=== PATIENT | female | born 1955 ===

== ENCOUNTER 2025-05-16 05:51 | Day surgery (SDC) | payer OTHER, SELFPAY ==
[2025-04-27 10:58] LABS: Hematocrit 43.5 % (37.0-47.0); Hemoglobin 14.4 g/dL (12.0-16.0); Mean Corp Hgb Conc. 33.1 g/dL (33.0-37.0); Mean Corpuscular Volume 88.4 fL (81.0-99.0); Platelet Count 313 10^3/uL (130-400); Red Cell Dist. Width 12.4 % (11.5-14.5)
[2025-04-27 12:37] LABS: Glycohemoglobin (HgbA1c) 5.4 % (4.0-5.9)
[2025-04-27 13:50] VITALS: BMI 35.8
[2025-04-27 14:56] VITALS: BMI 35.8
[2025-04-27 16:47] LABS: ALT (SGPT) 31 U/L (0-35); AST (SGOT) 24 U/L (14-36); Albumin 4.3 g/dl (3.5-5.0); Alkaline Phosphatase 87 U/L (38-126); Blood Urea Nitrogen 16 mg/dl (7-17); Calcium 9.8 mg/dl (8.4-10.2); Carbon Dioxide 30 mmol/L (22-30); Chloride 103 mmol/L (98-107); Estimated Creatinine Clearance 85 ml/min; Glucose 103 mg/dl (70-99); Potassium 4.9 mmol/L (3.5-5.1); Sodium 137 mmol/L (135-145); Total Protein 7.1 g/dl (6.3-8.2); eGFR > 60.00
--- NOTE | 2025-05-12 15:56 | CM ---
Patient has been referred to [facility] for SDS protocol. CM will follow up with [facility] to confirm acceptance.
--- NOTE | 2025-05-12 15:57 | CM ---
Demographics: confirmed
Living situation: with family.
Support Person Post Operatively:
History of
VN: no
SNF: no
Outpatient: confirmed
Has patient purchased required equipment: yes
PCP: confirmed
Pharmacy: [facility]
Post Operative Discharge Plan: [facility], [facility]
[2025-05-16] VITALS (12 sets, daily range): BP systolic 90–147; BP diastolic 48–86; PULSE 81; O2SAT 96
[2025-05-16] MEDS: CELEBREX 200 MG PO (06:23)
[2025-05-16] MEDS: TYLENOL 650 MG PO (06:23)
[2025-05-16] MEDS: NORMOSOL-R/PLASMALYTE-A 1000 IV (06:37)
[2025-05-16] MEDS: ZOFRAN 4 MG IV (08:51)
[2025-05-16] MEDS: ROXICODONE 5 MG PO (11:37)
[2025-05-16] MEDS: CYKLOKAPRON 650 MG PO (11:57)
[2025-05-16] MEDS: ANCEF 5 IV (12:06)
--- NOTE | 2025-05-16 12:27 | PTCARENOTE ---
Reached out to Shannon Maria about patients BP 90/58 after getting dressed and moving around/ Patient began to break out into a cold sweat and get a little light headed and dizzy. Shannon Maria to order midodrine and encourage oral hydration.
--- NOTE | 2025-05-16 15:38 | CM ---
[facility] following patient and have been notified that patient has been cleared and will be out at patient's home today to meet with patient.
Plan; Home with [facility].
== END 2025-05-16 14:30 | disposition home or self-care (01) ==
LOC: SDS 05:51
PROVIDERS: ATTENDING PHYSICIAN Specialist; FAMILY PHYSICIAN Family Medicine; OTHER PHYSICIAN Physician Assistant
DX: M17.12 Unilateral primary osteoarthritis, left knee (principal)
CPT/HCPCS: 27447; 36415; 73560; 80053; 83036; 85027; 87070; 93005; 97116; 97162; C1713; C1776

== ENCOUNTER 2025-05-22 23:26 | Observation (INO) | payer OTHER, SELFPAY ==
[2025-05-22 20:09] VITALS: BP 94/70
[2025-05-22 20:37] LABS: Hematocrit 43.0 % (37.0-47.0); Hemoglobin 14.3 g/dL (12.0-16.0); Mean Corp Hgb Conc. 33.3 g/dL (33.0-37.0); Mean Corpuscular Volume 87.9 fL (81.0-99.0); Nucleated Red Blood Cells % 0 %; Platelet Count 273 10^3/uL (130-400); Red Cell Dist. Width 13.0 % (11.5-14.5)
[2025-05-22 21:06] LABS: Troponin I 0.108 ng/ml
[2025-05-22 21:11] LABS: ALT (SGPT) 109 U/L (0-35); AST (SGOT) 125 U/L (14-36); Albumin 3.5 g/dl (3.5-5.0); Alkaline Phosphatase 132 U/L (38-126); Blood Urea Nitrogen 23 mg/dl (7-17); Calcium 8.9 mg/dl (8.4-10.2); Carbon Dioxide 29 mmol/L (22-30); Chloride 99 mmol/L (98-107); Glucose 147 mg/dl (70-99); Potassium 4.2 mmol/L (3.5-5.1); Sodium 131 mmol/L (135-145); Total Protein 5.9 g/dl (6.3-8.2); eGFR > 60.00
[2025-05-22 21:25] VITALS: BP 136/64
[2025-05-22 21:31] VITALS: BMI 35.2
[2025-05-22 21:35] VITALS: BP 101/55
--- NOTE | 2025-05-22 21:37 | ED.GENMED ---
History of Present Illness
General
Chief Complaint: Dizziness
Time Seen by Provider: 05/22/25 21:35
History of Present Illness
History of Present Illness:
69-year-old female presents to the ER with her for further evaluation after a near fainting episode that occurred while she was seated on the toilet this afternoon. Patient is status post left total knee replacement here by Dr. Soliman.
She has been taking her daily baby aspirin. She denies any fevers or chills. She admits that she probably has not been drinking enough water and yesterday started drinking Pedialyte for hydration. She states that she started to urinate more
throughout the night and had multiple small bowel movements. She had an urgency to defecate prompting her to hurry to the toilet. While seated on the toilet she became overwhelmed with nausea, sweating, feeling that she was going to faint. She
denies palpitations or chest pain. She denies feeling short of breath. Symptoms have resolved. Patient denies prior personal history of ACS or VTE.
Review of Systems
Review of Systems
Allergies reviewed?: Yes
Phy Exam
Physical Exam
Physical Exam:
Patient is awake, alert, appears in no acute distress, head is NCAT, PERRL, EOMI mucous membranes tacky, conjunctiva pink, heart regular rate and rhythm without murmurs or ectopy, lungs are clear to auscultation without wheezes rales or rhonchi, no
JVD, abdomen is soft and nontender on palpation, extremities without edema, left knee with the dressing intact, there is blood visible through the dressing which is contained with in an outline that has been drawn on the dressing, there is minimal
appropriate surrounding erythema without induration, no proximal streaking, no significant swelling noted to the lower leg, 2+ DP pulses present symmetric, GCS is 15
Course
Orders/Labs/Results
Orders:
Orders
05/22/25 20:15
Electrocardiogram (*1) Urgent
Reason for Study: Chest Pain
EKG- Treatment ONCE
05/22/25 20:29
Complete Blood Count/With Diff Urgent
Comprehensive Metabolic Panel Urgent
NT-proBNP Urgent
Comment: ADD ON
Troponin I Urgent
05/22/25 21:36
CR Chest Portable - 1 View Urgent
Comment:
Reason For Exam: chest pain
Reason Study Needs to be Portable: Patient Unstable
05/22/25 21:37
Urinalysis Reflex To Culture Urgent
Date Specimen was Collected: 05/23/25
Time Specimen was Collected: 00:08
05/22/25 21:48
0.9% Sodium Chloride 1000 ml [Nss] 1,000 ml IV BOLUS
05/22/25 21:58
Add On- LAB Urgent
Tests Added?: CHF/BNP
05/22/25 23:18
Admit/Transfer Patient As Directed
Co-Sign Provider:
Level of Care: Observation services
Assign to:: Medical/Surgical
Physician / Group: wilbert
Diagnosis: vasovagal
PRN Pain Medication Management As Directed
May give lesser potent ordered pain med per pt: Yes
preference::
Protocol:: Medication orders for pain may be administered in a
manner that supports deferring to patient preference
when the pt is:
- Requesting an ordered lesser potent pain medication.
Least to most potent pain medications are defined
as: acetaminophen < NSAID < tramadol < opioids
(morphine, oxycodone, hydromorphone).
- Requesting a lesser dose of the same medication IF
ORDERED.
- Requesting a less intrusive route of administration
if both routes are prescribed by the provider (PO <
IV).
05/22/25 23:19
Code Status As Directed
Resuscitation Status: Full Code
Abnormal Lab Results
05/22/25
20:29
Abs Immat Gran (auto) 0.1 H 10^3/uL
(0-0.05)
Absolute Neuts (auto) 9.5 H 10^3/uL
(1.4-6.5)
Absolute Lymphs (auto) 0.5 L 10^3/uL
(1.2-3.4)
Immature Gran % 0.6 H %
(0-0.5)
Neutrophils % 91.7 H %
(42.2-75.2)
Lymphocytes % 4.6 L %
(20.5-51.1)
Sodium 131 L mmol/L
(135-145)
BUN 23 H mg/dl
(7-17)
Glucose 147 H mg/dl
(70-99)
AST 125 H U/L
(14-36)
ALT 109 H U/L
(0-35)
Alkaline Phosphatase 132 H U/L
(38-126)
Troponin I 0.108 H* ng/ml
Total Protein 5.9 L g/dl
(6.3-8.2)
05/22/25 20:29
05/22/25 20:29
Mild hyponatremia seen. Mild increased BUN. Mild elevation in LFTs along with elevated troponin at 0.108
Vital Signs
Initial and Last Documented VS:
Initial Vital Signs
Temp Pulse Resp BP Pulse Ox
97.8 F 94 16 94/70 100
05/22/25 20:09 05/22/25 20:09 05/22/25 20:09 05/22/25 20:09 05/22/25 20:09
Last Documented Vital Signs
Temp Pulse Resp BP Pulse Ox
97.8 F 76 16 108/51 100
05/22/25 22:00 05/23/25 00:00 05/23/25 00:00 05/23/25 00:00 05/22/25 21:48
MDM/Problems Addressed
Differential Diagnosis Includes:
Differential diagnosis to consider but not limited to electrolyte dyscrasia, dehydration, ACS, congestive heart failure along with other etiologies considered
Chronic conditions affecting care:
Age greater than 50, asthma, obesity
*Radiology
Radiology exam reviewed: preliminary read by ED provider (I independently viewed and interpreted portable chest x-ray showing cardiomegaly, no infiltrate)
*Pulse Oximetry
SaO2: 100
Oxygen Mode of Delivery: Room air
Patient hypoxic: no
*EKG
Interpreted by ED Provider?: Yes (I independently viewed and interpreted twelve-lead EKG showing sinus tachycardia, rate 106, leftward axis, no ST elevation, this is a nonspecific EKG without evidence for acute ischemia, other than increased rate
this is similar to prior from 04/27/2025)
*[employer] Chief Interpretation
Rate: tachycardiac (I independently viewed and interpreted rhythm strip showing sinus tachycardia, no ectopy)
*Critical Care Note
Total Time (30-74mins, 75-104mins- exclusive of procedures): Not Applicable
Update Note
Update Note:
I discussed with patient and present at bedside reassuring nature of syncopal event, likely vasovagal, however I am concerned given her troponin is elevated at 0.1. LFTs are also slightly more elevated than her baseline. BNP is added to
triage workup along with portable chest x-ray. They expressed understanding of benefit of admission for further ACS assessment. Will discuss with hospitalist. IV fluids ordered
Full pt presentation reviewed with the hospitalist who accepts pt for admission
ED Attending Note
-
Portions of this chart may have been created with voice recognition software.� Occasional wrong word or��sound alike� substitutions may have occurred due to the inherent limitations of voice recognition software.
Discharge Plan
Departure
Patient Disposition: Admit
Date of Disposition: 05/22/25
Time of Disposition: 22:27
Presentation/result/management discussed w/ accepting MD/DO: Hospitalist
Discharge Problem:
Vasovagal episode, Elevated troponin I level, Elevated LFTs
Interventions
Interventions:
*Risk Screen - Suicide Last Done: 05/22/25 20:09
*General Assessment Last Done: 05/22/25 21:39
*Neglect/Abuse Screening Last Done: 05/22/25 20:09
*ED- Fall Risk Assessment Last Done: 05/22/25 21:39
*ED COVID-19 Vaccine History Last Done: 05/22/25 21:39
*ED Influenza Vaccine History Last Done: 05/22/25 21:39
ED- Neurological Assessment Last Done: 05/22/25 21:45
ED- Cardiac Assessment Last Done: 05/22/25 21:45
[2025-05-22 21:38] VITALS: BP 101/55
[2025-05-22] MEDS: NSS 1000 IV (21:56)
[2025-05-22 22:00] VITALS: BP 112/47
--- NOTE | 2025-05-22 22:10 | EDRN ---
Purewick applied per providers order. BP low at this time, do not want pt standing. Stretcher without scale as well, so stated weight documented in pt's chart.
[2025-05-22 23:00] VITALS: BP 97/64
--- NOTE | 2025-05-22 23:21 | HPS.HSE ---
Family Physician
-
Family Physician: NOT KNOW UNKNOWN - PT DOES
Chief Complaint
-
near syncope
History of Present Illness
69-year-old female no past medical history of presenting for near fainting episode that occurred while she was seated on the toilet this afternoon. She underwent total left knee replacement here by Dr. Soliman 6 days ago. Her blood pressure was
low the day after surgery but improved. She denies fevers or chills. She has not been drinking enough water and yesterday starting Pedialyte for hydration. She was constipated after taking oxycodone and took laxatives with explosive diarrhea for
the past few days. This is resolved. She stopped taking the stool softener.
She had dizziness yesterday.
She started to urinate more throughout the night and had multiple small bowel movements. She had urgency to defecate prompting her to hurry to the toilet. While seated on the toilet she became overwhelmed with nausea, sweating and feeling that she
was going to faint. Denies palpitations or chest pain. Denies shortness of breath. Symptoms have resolved.
She denies smoking or alcohol use.
Medical History
Past Medical History
Past Medical History: Reports None
Past Surgical History: Reports None
Social History
Tobacco: Non-smoker
Alcohol: None
Drug: None
Family History
Family History: Not pertinent
Allergies / Home Medications
Allergies reflects when Allergies were last updated in [employer].
Home Medications with original date entered in [employer]
Allergy/Medication List:
Allergies
Allergy/AdvReac Type Severity Reaction Status Date / Time
No Known Allergies Allergy Verified 05/22/25 20:09
Home Medications
albuterol sulfate 90 mcg/actuation aerosol inhaler 2 puff inhalation Q6HPRN PRN allergies 04/25/25
cefadroxil 500 mg capsule 500 mg PO BID #14 caps 04/27/25
celecoxib 200 mg capsule (Celebrex) 200 mg PO DAILY #14 caps 04/27/25
dexamethasone 4 mg tablet 4 mg PO BID Anti-inflammatory #7 tabs 04/27/25
famotidine 20 mg tablet (Pepcid) 20 mg PO HS #30 tabs 04/27/25
gabapentin 300 mg capsule 300 mg PO HS neuropathic pain/sleep #10 caps 04/27/25
ondansetron HCl 4 mg tablet 4 mg PO Q6H PRN nausea and vomiting #30 tabs 04/27/25
Saccharomyces boulardii 250 mg capsule (Florastor) 250 mg PO BID #14 caps 05/16/25
acetaminophen 500 mg tablet 1,000 mg (2 x 500 mg) PO Q6H pain #60 tabs 05/16/25
aspirin 325 mg tablet 325 mg PO DAILY #30 tabs 05/16/25
Review of Systems
-
Constitutional: Reports No Symptoms
EENT: Reports No Symptoms
Respiratory: Reports No Symptoms
Cardiac: Reports No Symptoms
Abdomen/GI: Reports No Symptoms and See HPI
: Reports No Symptoms
Musculoskeletal: Reports No Symptoms
Skin: Reports No Symptoms
Neurological: Reports No Symptoms
Endocrine: Reports No Symptoms
Hematologic/Lymphatic: Reports No Symptoms
Psych: Reports No Symptoms
Physical Exam
Vital Signs
Vital Signs
Temp Pulse Resp BP Pulse Ox
97.8 F 79 19 112/47 100
05/22/25 22:00 05/22/25 22:00 05/22/25 22:00 05/22/25 22:00 05/22/25 21:48
Physical Exam
General: Well Developed, Well Nourished and No Apparent Distress
HEENT: NormoCephalic, Moist mucous membranes and Atraumatic
Respiratory: Clear
Cardiac: S1/S2 and Regular Rhythm; No Murmur or Rub
GI: Soft, Non Tender, Non Distended and Normal Bowel Sounds; No Organomegaly
Rectal: Deferred by Provider
Musculoskeletal: No Clubbing, No Cyanosis and No Edema
Skin: No Rash
Neuro: Nonfocal/grossly intact
Laboratory Results
-
05/22/25 20:29
05/22/25 20:
Laboratory Results
Total Bilirubin 1.2 mg/dl (0.2-1.3) 05/22/25 20:
AST 125 U/L (14-36) H 05/22/25 20:
ALT 109 U/L (0-35) H 05/22/25 20:
Alkaline Phosphatase 132 U/L (38-126) H 05/22/25 20:
Troponin I 0.108 ng/ml H* 05/22/25 20:29
Data Reviewed
-
Lab Data: Labs Reviewed by me
Old Records: Reviewed
Impression/Plan
-
IMPRESSION:
PLAN:
# Hypotension/vasovagal episode likely from hypovolemia from decreased p.o. intake/explosive bowel movements from laxative
- Check orthostatic vital sign
- IV fluids given
# Nonischemic myocardial injury secondary to hypotension
- Troponin 0.1
- Trend troponins
- EKG shows sinus tachycardia
# Transaminitis likely from hypotension
-Continue to monitor
Total left knee replacement 6 days ago
- She completed dexamethasone yesterday
- She has 3 more tablets of cefadroxil left
- Continue gabapentin, Tylenol, celecoxib
- Continue aspirin for DVT prophylaxis
Full code
DVT prophylaxis�aspirin
Regular diet
[2025-05-23] VITALS (7 sets, daily range): BP systolic 106–133; BP diastolic 51–71; PULSE 86–91; BMI 37.9
[2025-05-23 00:29] LABS: Urine Character Clear (Clear)
[2025-05-23 01:37] LABS: Urine Squamous Cell 21-25 /LPF (Few)
[2025-05-23 01:38] LABS: Urine Red Blood Cell 0-2 /HPF (0-2); Urine White Cell 0-2 /HPF (0-5)
[2025-05-23] MEDS: NSS 1000 IV ×2 (01:46→18:36)
[2025-05-23] MEDS: TYLENOL 1000 MG PO ×4 (02:11→20:44)
[2025-05-23 03:03] LABS: Troponin I 0.069 ng/ml
[2025-05-23 07:56] LABS: Hematocrit 38.3 % (37.0-47.0); Hemoglobin 12.7 g/dL (12.0-16.0); Mean Corp Hgb Conc. 33.2 g/dL (33.0-37.0); Mean Corpuscular Volume 89.1 fL (81.0-99.0); Nucleated Red Blood Cells % 0 %; Platelet Count 266 10^3/uL (130-400); Red Cell Dist. Width 13.0 % (11.5-14.5)
[2025-05-23 08:30] LABS: Troponin I 0.087 ng/ml
[2025-05-23 08:33] LABS: ALT (SGPT) 81 U/L (0-35); AST (SGOT) 50 U/L (14-36); Albumin 3.0 g/dl (3.5-5.0); Alkaline Phosphatase 101 U/L (38-126); Blood Urea Nitrogen 14 mg/dl (7-17); Calcium 8.6 mg/dl (8.4-10.2); Carbon Dioxide 28 mmol/L (22-30); Chloride 105 mmol/L (98-107); Estimated Creatinine Clearance 98 ml/min; Glucose 89 mg/dl (70-99); Potassium 4.4 mmol/L (3.5-5.1); Sodium 134 mmol/L (135-145); Total Protein 5.5 g/dl (6.3-8.2); eGFR > 60.00
[2025-05-23] MEDS: KEFLEX 250 MG PO ×3 (09:33→20:45)
[2025-05-23] MEDS: FLORASTOR 250 MG PO ×2 (09:33→20:45)
[2025-05-23] MEDS: ASPIRIN 325 MG PO (09:33)
[2025-05-23] MEDS: CELEBREX 200 MG PO (09:33)
--- NOTE | 2025-05-23 11:30 | W.PN.HOSP.TC ---
Addendum entered and electronically signed by Manny Ren MD 05/23/25 11:36:
Troponin pending
Original Note:
Today's Communication/Plan
-
Monitor vital signs
see plan
Continue to monitor orthostatics
Continue with IV fluids
Monitor LFTs
dc planning if feeling better
Assessment / Plan
Assessment / Plan
General: Well Developed, Well Nourished and No Apparent Distress
HEENT: NormoCephalic, Moist mucous membranes and Atraumatic
Respiratory: Clear
Cardiac: S1/S2 and Regular Rhythm; No Murmur or Rub
GI: Soft, Non Tender, Non Distended and Normal Bowel Sounds
Musculoskeletal: No Edema
Neuro: Nonfocal/grossly intact
Hypotension/vasovagal episode likely from hypovolemia from decreased p.o. intake/explosive bowel movements from laxative
never had syncope
Check orthostatic
- IV fluids given
CK wnl
Mild hyponatremia
Monitor
# Likely nonischemic myocardial injury secondary to hypotension
Denies any chest pain
- Trend troponins
- EKG shows sinus tachycardia
If troponin is downtrending then cardiology evaluation outpatient
# Transaminitis likely from hypotension
-Continue to monitor
Total left knee replacement 6 days ago
- She completed dexamethasone yesterday
- She has 3 more tablets of cefadroxil left
- Continue gabapentin, Tylenol, celecoxib
- Continue aspirin for DVT prophylaxis
Full code
DVT prophylaxis�aspirin
Anticipated Discharge: Within 24 hours
Subjective/Interval History
-
Date of Service: May 23, 2025
Denies pain
Objective Data
-
Labs:
Laboratory Results
05/23/25
07:28
WBC 8.2
Hgb 12.7
Hct 38.3
Plt Count 266
Sodium 134 L
Potassium 4.4
Chloride 105
Carbon Dioxide 28
BUN 14
Creatinine 0.6
Glucose 89
Calcium 8.6
Total Bilirubin 0.9
AST 50 H
ALT 81 H
Alkaline Phosphatase 101
Vital Signs:
Vital Signs
Temp Pulse Resp BP Pulse Ox
98.2 F 91 18 133/53 95
05/23/25 07:15 05/23/25 07:15 05/23/25 07:15 05/23/25 07:15 05/23/25 07:15
I&O
05/22/25 05/23/25 05/24/25
06:59 06:59 06:59
Intake Total 600 / 600
Output Total 350 / 350
Balance 250 / 250
[2025-05-23] MEDS: ZOFRAN 4 MG PO (12:07)
[2025-05-23 14:04] LABS: Troponin I 0.071 ng/ml
[2025-05-23] MEDS: ATIVAN 1 MG PO (16:06)
--- NOTE | 2025-05-23 16:15 | CM ---
Patient seen at bedside
IA completed
[facility] form explained & signed. In chart
Lives at home with spouse in 2 story home, 1st floor set up
PLOF: Independent with walker (since ortho surgery last wk)
DME: Walker, cane, elevated toilet seat
has had [facility] recently, denies rehab
request PT to eval prior to discharge
PCP: Iván Almeida
Pharmacy: [facility]
PLAN: home,
[2025-05-23] MEDS: NEURONTIN 300 MG PO (22:10)
[2025-05-23] MEDS: PEPCID 20 MG PO (22:10)
[2025-05-24] MEDS: KEFLEX 250 MG PO ×2 (02:50→09:10)
[2025-05-24] MEDS: TYLENOL 1000 MG PO ×2 (02:50→09:10)
[2025-05-24 03:33] VITALS: BP 127/65; BP 130/72; BP 134/72; PULSE 78; PULSE 79
[2025-05-24 06:00] VITALS: BMI 38.3
[2025-05-24 06:13] LABS: Hematocrit 33.9 % (37.0-47.0); Hemoglobin 11.1 g/dL (12.0-16.0); Mean Corp Hgb Conc. 32.7 g/dL (33.0-37.0); Mean Corpuscular Volume 91.1 fL (81.0-99.0); Platelet Count 214 10^3/uL (130-400); Red Cell Dist. Width 13.1 % (11.5-14.5)
[2025-05-24] MEDS: NSS 1000 IV (06:23)
[2025-05-24 06:33] LABS: ALT (SGPT) 76 U/L (0-35); AST (SGOT) 34 U/L (14-36); Albumin 2.7 g/dl (3.5-5.0); Alkaline Phosphatase 90 U/L (38-126); Blood Urea Nitrogen 11 mg/dl (7-17); Calcium 8.3 mg/dl (8.4-10.2); Carbon Dioxide 28 mmol/L (22-30); Chloride 106 mmol/L (98-107); Estimated Creatinine Clearance 84 ml/min; Glucose 91 mg/dl (70-99); Potassium 4.2 mmol/L (3.5-5.1); Sodium 136 mmol/L (135-145); Total Protein 5.0 g/dl (6.3-8.2); eGFR > 60.00
[2025-05-24 06:49] LABS: Nucleated Red Blood Cells % 0 %
[2025-05-24 08:06] VITALS: BP 113/60; BP 135/76; BP 139/71; PULSE 73; PULSE 75; PULSE 81
[2025-05-24] MEDS: CELEBREX 200 MG PO (09:10)
[2025-05-24] MEDS: FLORASTOR 250 MG PO (09:10)
[2025-05-24] MEDS: ASPIRIN 325 MG PO (09:10)
[2025-05-24] MEDS: ATIVAN 1 MG PO (09:25)
--- NOTE | 2025-05-24 11:30 | W.PN.HOSP.TC ---
Addendum entered and electronically signed by Manny Ren MD 05/24/25 13:41:
Time of discharge 37 minutes
Original Note:
Today's Communication/Plan
-
Monitor vital signs see plan
PT to see today
Possible discharge after PT
DC further fluids
Assessment / Plan
Assessment / Plan
General: Well Developed, Well Nourished and No Apparent Distress
HEENT: NormoCephalic, Moist mucous membranes and Atraumatic
Respiratory: Clear
Cardiac: S1/S2 and Regular Rhythm; No Murmur or Rub
GI: Soft, Non Tender, Non Distended and Normal Bowel Sounds
Musculoskeletal: No Edema
Neuro: Nonfocal/grossly intact
Hypotension/vasovagal episode likely from hypovolemia from decreased p.o. intake/explosive bowel movements from laxative
never had syncope
Orthostatic negative
- IV fluids given, now DC further IV fluid
CK wnl
Mild hyponatremia
Resolved
# Likely nonischemic myocardial injury secondary to hypotension
Denies any chest pain
- Trend troponins
- EKG shows sinus tachycardia
Patient to follow with cardiology outpatient
# Transaminitis likely from hypotension
-Continue to monitor, improving
Mild anemia
Likely dilutional
Total left knee replacement 6 days ago
- She completed dexamethasone yesterday
- She has 3 more tablets of cefadroxil left
- Continue gabapentin, Tylenol, celecoxib
- Continue aspirin for DVT prophylaxis
Anxiety
Advised patient to follow-up with primary care provider closely
She already has Ativan from previous time given by her PCP
ativan prn
Full code
DVT prophylaxis�aspirin
Anticipated Discharge: Today
Subjective/Interval History
-
Date of Service: May 24, 2025
Denies pain
Objective Data
-
Labs:
Laboratory Results
05/24/25
05:28
WBC 6.8
Hgb 11.1 L
Hct 33.9 L
Plt Count 214
Sodium 136
Potassium 4.2
Chloride 106
Carbon Dioxide 28
BUN 11
Creatinine 0.7
Glucose 91
Calcium 8.3 L
Total Bilirubin 0.5
AST 34
ALT 76 H
Alkaline Phosphatase 90
Vital Signs:
Vital Signs
Temp Pulse Resp BP Pulse Ox
98.9 F 73 18 113/60 97
05/24/25 08:06 05/24/25 08:06 05/24/25 08:06 05/24/25 08:06 05/24/25 08:06
I&O
05/23/25 05/24/25 05/25/25
06:59 06:59 06:59
Intake Total 600 / 600 3720 / 3720
Output Total 350 / 350
Balance 250 / 250 3720 / 3720
[2025-05-24 12:29] VITALS: BP 137/65; BP 146/66; PULSE 80; O2SAT 96
--- NOTE | 2025-05-24 13:41 | W.DCSUMMARY ---
Discharge Summary
Discharge Data
Date of Admission: 05/22/25
Date of Discharge: 05/24/25
-
Pending Results: No
Hospital Course
69-year-old female with past medical history of recent left knee replacement, anxiety came to the hospital with hypotension along with vasovagal episode which was likely thought was secondary to hypovolemia from decreased p.o. intake along with
diarrhea after laxatives. Patient did not had any syncopal episode prior to the hospitalization. Patient was given IV fluids which improved her symptoms. Initially she also had mild troponin elevation which was likely thought was nonischemic
secondary to hypotension. She denied any chest pain. Troponin continue to improve over time. Patient was instructed to follow-up with cardiology outpatient. Patient also did had severe anxiety which she has history of and was instructed to
follow-up closely with PCP outpatient. Patient was evaluated by physical therapy on this hospitalization. Once her blood pressure and symptoms improved, she was then discharged home with instructions to follow-up with all her physicians outpatient.
Discharge Plan
-
Patient Disposition: Home with Home Care
Discharge Diagnosis/Procedures: Hypotension/vasovagal episode likely from hypovolemia from decreased p.o. intake/explosive bowel movements from laxative
suspected nonischemic myocardial injury secondary to hypotension
Diet: As tolerated
Activity: As tolerated
Driving Restrictions: Not until seen by your Dr
Bathing Restrictions: None
Referrals:
Topher Soliman MD [Active, Orthopedics]
Guy Carmichael MD [Active, Cardiology]
UNKNOWN - PT DOES,NOT KNOW [Family Provider, Internal Medicine] - in less than 1 week
Prescriptions:
New
lorazepam 1 mg Tablet
1 mg PO DAILY PRN (Reason: anxiety) Qty: 10 0RF
Continued
albuterol sulfate 90 mcg/actuation Hfa Aerosol Inhaler
2 puff INHALATION Q6HPRN PRN (Reason: allergies)
celecoxib [Celebrex] 200 mg capsule
200 mg PO DAILY Qty: 14 0RF
Rx Instructions:
Take with food.
Do NOT take within 2 hours of Aspirin post-surgery.
famotidine [Pepcid] 20 mg tablet
20 mg PO HS Qty: 30 0RF
Rx Instructions:
Take nightly while on post-surgical pain meds to reduce GI upset.
dexamethasone 4 mg tablet
4 mg PO BID Qty: 7 0RF
Rx Instructions:
Start night of discharge and continue twice a day until finished.
Take with food.
gabapentin 300 mg capsule
300 mg PO HS Qty: 10 0RF
Rx Instructions:
For post-surgical use.
ondansetron HCl 4 mg tablet
4 mg PO Q6H PRN (Reason: nausea and vomiting) Qty: 30 0RF
cefadroxil 500 mg capsule
500 mg PO BID Qty: 14 0RF
Rx Instructions:
Start night of discharge and continue twice a day until finished.
Take with probiotic.
aspirin 325 mg tablet
325 mg PO DAILY Qty: 30 0RF
Rx Instructions:
Take daily x4 weeks for blood clot prevention
Saccharomyces boulardii [Florastor] 250 mg capsule
250 mg PO BID Qty: 14 0RF
Rx Instructions:
Over the counter. Take while on antibiotic.
If unavailable, choose a different probiotic.
acetaminophen 500 mg Tablet
1,000 mg PO Q6H Qty: 60 0RF
Rx Instructions:
Do NOT exceed >4000 mg daily.
Discharge Orders:
Discharge Patient (As Directed); Ordered 05/24/25
Ordered By: Manny Ren
Discharge Date and Time
Discharge Date/Time: 05/24/25 14:57
Print Language: WELSH
[2025-05-24 14:19] VITALS: BP 137/70
--- NOTE | 2025-05-24 14:28 | CM ---
CM reviewed chart and noted dc order
PT eval with VN recs
Bedside meeting with pt
Referral to [facility] via [facility]- pending
Pt closed to service last week
VN order on chart
Pt will likely need [employer] auth once VN provider has accepted pt for SOC
Discharge Disposition- home with [facility], spouse transport
fax- [phone]
== END 2025-05-24 14:57 | disposition home health service (06) ==
LOC: 2 SOUTH 23:26
PROVIDERS: Emergency Medicine; ADMITTING PHYSICIAN Hospitalist; ATTENDING PHYSICIAN Internal Medicine; EMERGENCY PHYSICIAN Emergency Medicine
DX: I95.9 Hypotension, unspecified (principal); E87.1 Hypo-osmolality and hyponatremia; R74.01 Elevation of levels of liver transaminase levels; F41.9 Anxiety disorder, unspecified; E86.1 Hypovolemia; R79.89 Other specified abnormal findings of blood chemistry; Z96.652 Presence of left artificial knee joint; Z79.899 Other long term (current) drug therapy; Z79.82 Long term (current) use of aspirin; J45.909 Unspecified asthma, uncomplicated; E66.9 Obesity, unspecified; Z68.38 Body mass index [BMI] 38.0-38.9, adult; D64.9 Anemia, unspecified
CPT/HCPCS: 71045; 80053; 81003; 81015; 82550; 83880; 84484; 85025; 93005; 96360; 97116; 97162; 99285; G0378